=== PATIENT | male | born 1995 | race Caucasian/White ===

== ENCOUNTER 2017-10-29 19:22 | Emergency (ER) | payer OTHER ==
[2017-10-29] MEDS: IPRATROPIUM 0.5MG/ALBUTEROL 2.5MG INH SOL UD 3ML (DUONEB)(J7620) NEB (21:52)
[2017-10-29] MEDS: ALBUTEROL 90 MCG/ACT 8GM HFA INHALER INH (22:22)
== END 2017-10-29 22:33 | disposition home or self-care (01) ==
LOC: M ED 19:22
DX: J45.909 Unspecified asthma, uncomplicated (principal)
CPT/HCPCS: 94640

== ENCOUNTER 2017-11-06 20:06 | Emergency (ER) | payer OTHER ==
[2017-11-06] MEDS: predniSONE 20 MG TAB PO (22:48)
[2017-11-06] MEDS: IPRATROPIUM 0.5MG/ALBUTEROL 2.5MG INH SOL UD 3ML (DUONEB)(J7620) NEB (23:38)
[2017-11-06] MEDS: ALBUTEROL SULFATE 2.5 MG/0.5 ML INH NEB SOLN INH (23:38)
== END 2017-11-07 00:31 | disposition home or self-care (01) ==
LOC: M ED 20:06
DX: J45.901 Unspecified asthma with (acute) exacerbation (principal)
CPT/HCPCS: 94640

== ENCOUNTER 2018-11-15 11:02 | Emergency (ER) | payer OTHER ==
[~2018-11-15] VITALS: Ht 180.3 cm; Wt 90.9 kg
[~2018-11-15 11:02] MED LIST: ALBU17IN2 INH; PRED20TA PO
[2018-11-15] MEDS: IPRATROPIUM 0.5MG/ALBUTEROL 2.5MG INH SOL UD 3ML (DUONEB)(J7620) NEB SCH ×3 (11:27→11:51)
[2018-11-15 12:06] VITALS: BP 121/76
[2018-11-15] MEDS ORDERED: PROAAER10 INH (12:28)
== END 2018-11-15 12:33 | disposition home or self-care (01) ==
LOC: M ED 11:02
DX: J45.901 Unspecified asthma with (acute) exacerbation (principal); F17.210 Nicotine dependence, cigarettes, uncomplicated

== ENCOUNTER 2019-01-12 10:29 | Emergency (ER) | payer OTHER ==
[~2019-01-12] VITALS: Ht 177.8 cm; Wt 93.6 kg
[~2019-01-12 10:29] MED LIST changes: +PROAAER10 INH
[2019-01-12] MEDS ORDERED: HYDR-3363 (10:46)
[2019-01-12] MEDS ORDERED: MELO15TA28 (10:46)
[2019-01-12] MEDS ORDERED: IPRATROPIUM 0.5MG/ALBUTEROL 2.5MG INH SOL UD 3ML (DUONEB)(J7620) NEB ONE (12:00)
--- NOTE | 2019-01-12 12:14 | REP ---
Chest x-ray: Two views. History: Productive cough and wheezing. . Comparison study: No comparison study . Findings: The lungs are well inflated and free of infiltrate. The pleural angles are sharp. The heart size is normal. Pulmonary vasculature is not increased. No significant bony abnormality is seen. Impression: Negative chest x-ray. Electronically Signed by Cricket Vaughan MD 01/12/2019 12:05 P
[2019-01-12 12:41] LABS: INFLUENZA A AMPLIFICATION POSITIVE (NEGATIVE); INFLUENZA B AMPLIFICATION NEGATIVE (NEGATIVE)
[2019-01-12 13:21] VITALS: BP 120/62
== END 2019-01-12 12:55 | disposition home or self-care (01) ==
LOC: M ED 10:29
DX: J09.X9 Influenza due to identified novel influenza A virus with other manifestations (principal); J45.909 Unspecified asthma, uncomplicated; F17.200 Nicotine dependence, unspecified, uncomplicated; Z79.899 Other long term (current) drug therapy

== ENCOUNTER 2019-03-31 19:54 | Emergency (ER) | payer OTHER ==
[~2019-03-31] VITALS: Ht 177.8 cm; Wt 90.9 kg
[~2019-03-31 19:54] MED LIST changes: +HYDR-3363; +MELO15TA28
[2019-03-31] MEDS ORDERED: diphenhydrAMINE 50 MG CAP PO ONE (23:45)
[2019-03-31] MEDS ORDERED: methylPREDNISolone INJ 125 MG/2 ML VIAL (J2930) IM ONE (23:45)
[2019-03-31] MEDS ORDERED: PRED20TA PO (23:49)
[2019-03-31] MEDS ORDERED: PROAAER10 INH (23:49)
[2019-04-01 00:01] VITALS: BP 14/55
== END 2019-04-01 00:09 | disposition home or self-care (01) ==
LOC: M ED 19:54
DX: T78.40XA Allergy, unspecified, initial encounter (principal); L29.9 Pruritus, unspecified; L50.9 Urticaria, unspecified; H05.222 Edema of left orbit; Z77.098 Contact with and (suspected) exposure to other hazardous, chiefly nonmedicinal, chemicals; J45.909 Unspecified asthma, uncomplicated; Z72.0 Tobacco use
CPT/HCPCS: 96372; 99284; J2930

== ENCOUNTER 2019-05-22 07:49 | Emergency (ER) | payer OTHER ==
[~2019-05-22] VITALS: Ht 177.8 cm; Wt 89.4 kg
[~2019-05-22 07:49] MED LIST changes: -ALBU17IN2 INH; +PROV108A INH
[2019-05-22] MEDS ORDERED: HYDR-3363 PO (08:14)
[2019-05-22] MEDS ORDERED: ALBUTEROL SULFATE 2.5 MG/0.5 ML INH NEB SOLN NEB ONE (10:30)
[2019-05-22 10:54] LABS: BASO % 0.3 % (0.0-1.0); EOS # 0.3 10^3/uL (0.0-0.50); HEMATOCRIT 47.8 % (42.0-52.0); HEMOGLOBIN 16.3 g/dl (13.5-17.5); LYMPH # 1.6 10^3/uL (1.5-6.5); LYMPH % 25.3 % (24.0-44.0); MEAN CORPUSCULAR HGB CONC 34.1 g/dl (32.0-36.5); MONO # 0.7 10^3/uL (0.0-0.8); MONO % 10.9 % (0.0-5.0); NEUTROPHILS # 3.8 10^3/uL (1.8-7.7); NEUTROPHILS % 59.3 % (36.0-66.0); PLATELET COUNT, AUTOMATED 263 10^3/uL (150-450); RED BLOOD COUNT 5.43 10^6/uL (4.30-6.10); WHITE BLOOD COUNT 6.3 10^3/uL (4.0-10.0)
[2019-05-22 11:15] LABS: BLOOD UREA NITROGEN 14 MG/DL (7-18); CALCIUM LEVEL 9.7 MG/DL (8.5-10.1); CARBON DIOXIDE LEVEL 31 MEQ/L (21-32); CHLORIDE LEVEL 108 MEQ/L (98-107); CREATININE FOR GFR 0.78 MG/DL (0.70-1.30); GLOMERULAR FILTRATION RATE > 60.0 (>60); GLUCOSE, FASTING 86 MG/DL (70-100); POTASSIUM SERUM 4.2 MEQ/L (3.5-5.1); SODIUM LEVEL 143 MEQ/L (136-145)
[2019-05-22 11:22] LABS: INFLUENZA A AMPLIFICATION NEGATIVE (NEGATIVE); INFLUENZA B AMPLIFICATION NEGATIVE (NEGATIVE)
[2019-05-22] MEDS ORDERED: TESS100C PO (12:22)
[2019-05-22] MEDS ORDERED: PROAAER10 INH (12:22)
[2019-05-22 13:12] LABS: CK-MB VALUE MASS < 1.0 NG/ML (<3.6); CPK CREATINE PHOSPHOKINASE 127 U/L (39-308); MB/CK RELATIVE INDEX 0.79 (< OR =4); TROPONIN I < 0.02 NG/ML (< 0.10)
--- NOTE | 2019-05-22 13:26 | REP ---
CHEST PA AND LATERAL: 05/22/2019. Comparison: 01/12/2019. Clinical history: Wheezing, productive cough, fever and chills. Findings: The lungs are well inflated. There is no pleural effusion or lateral pleural thickening. There are a few cuffed bronchi in the perihilar regions that might reflect some bronchitis or reactive airway disease but no dense consolidation or effusion. The heart, mediastinal and hilar contours are normal. Airway intact. Bones unremarkable. Impression: 1. Some minor peribronchial thickening perihilar regions that might reflect reactive airway disease or bronchitis but no dense consolidation or effusion. Otherwise negative. Electronically Signed by Blake Clark MD 05/22/2019 03:06 P
[2019-05-22 13:27] VITALS: BP 122/83
--- NOTE | 2019-05-23 08:05 | ECGEPIP ---
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
== END 2019-05-22 13:36 | disposition home or self-care (01) ==
LOC: M ED 07:49
DX: J20.9 Acute bronchitis, unspecified (principal); J06.9 Acute upper respiratory infection, unspecified; J45.909 Unspecified asthma, uncomplicated; F17.210 Nicotine dependence, cigarettes, uncomplicated

== ENCOUNTER 2020-10-14 03:32 | Emergency (ER) | payer OTHER ==
[~2020-10-14] VITALS: Ht 180.3 cm; Wt 105.0 kg
[~2020-10-14 03:32] MED LIST changes: +HYDR-3363 PO; +TESS100C PO
[2020-10-14 04:00] VITALS: BP 116/73
[2020-10-14] MEDS ORDERED: methylPREDNISolone 125MG 2ML VIAL IV ONE (04:00)
[2020-10-14] MEDS ORDERED: COMBIVENT RESPIMAT 100-20MCG INHALER 4GM INH SCH (04:00)
== END 2020-10-14 07:29 | disposition home or self-care (01) ==
LOC: M ED 03:32
DX: J45.21 Mild intermittent asthma with (acute) exacerbation (principal); J30.81 Allergic rhinitis due to animal (cat) (dog) hair and dander; F17.210 Nicotine dependence, cigarettes, uncomplicated
CPT/HCPCS: 96374; 99284; J2930

== ENCOUNTER 2020-11-01 18:00 | Emergency (ER) | payer OTHER ==
[~2020-11-01] VITALS: Ht 180.3 cm; Wt 93.3 kg
--- OUTSIDE RECORDS SUMMARY | 2020-11-01 18:09 | CCD ---
Author Author [facility] Organization [facility] Address Unknown Phone Unavailable Support Name Relationship Address Phone MILIND BOWLING Next Of Kin [address] [place] [address] [facility] Next Of Kin [address] [place] [address] Unavailable Re-disclosure Warning The records that you are about to access may contain information from federally-assisted alcohol or drug abuse programs. If such information is present, then the following federally mandated warning applies: This information has been disclosed to you from records protected by federal confidentiality rules (42 CFR part 2). The federal rules prohibit you from making any further disclosure of this information unless further disclosure is expressly permitted by the written consent of the person to whom it pertains or as otherwise permitted by 42 CFR part 2. A general authorization for the release of medical or other information is NOT sufficient for this purpose. The Federal rules restrict any use of the information to criminally investigate or prosecute any alcohol or drug abuse patient.The records that you are about to access may contain highly sensitive health information, the redisclosure of which is protected by Article 27-F of the [facility] Public Health law. If you continue you may have access to information: Regarding HIV / AIDS; Provided by facilities licensed or operated by the [facility] Office of Mental Health; or Provided by the [facility] Office for People With Developmental Disabilities. If such information is present, then the following [facility] mandated warning applies: This information has been disclosed to you from confidential records which are protected by state law. State law prohibits you from making any further disclosure of this information without the specific written consent of the person to whom it pertains, or as otherwise permitted by law. Any unauthorized further disclosure in violation of state law may result in a fine or retirement sentence or both. A general authorization for the release of medical or other information is NOT sufficient authorization for further disc losure. Insurance Providers Payer name Policy type / Coverage type Policy ID Covered green party ID Covered green party's relationship to schwab Policy Schw[employer] Plan Information [employer] [id number] SP [id number] [employer] [id number] SP [id number] [employer] [id number] SP [id number] [employer] [id number] SP [id number] [employer] [id number] SP [id number]
--- OUTSIDE RECORDS SUMMARY | 2020-11-01 18:58 | CCD ---
Author Author [facility] Organization [facility] Address Unknown Phone Unavailable Support Name Relationship Address Phone MILIND BOWLING Next Of Kin [address] [place] [address] [facility] Next Of Kin [address] [place] [address] Unavailable Re-disclosure Warning The records that you [...] is protected by Article 27-F of the [facility] Public Health law. If you continue you may have access to information: Regarding HIV / AIDS; Provided by facilities licensed or operated by the [facility] Office of Mental Health; or Provided by the [facility] Office for People With Developmental Disabilities. If such information is present, then the following [facility] mandated warning applies: This information has been [...] law may result in a fine or assisted sentence or both. A general authorization for the release of medical or other information is NOT sufficient authorization for further disc losure. Insurance Providers Payer name Policy type / Coverage type Policy ID Covered alliance party ID Covered alliance party's relationship to schwab Policy Schw[employer] Plan Information [employer] [id number] SP [id number] [employer] [id number] SP [id number] [employer] [id number] SP [id number] [employer] [id number] SP [id number] [employer] [id number] SP [id number]
[2020-11-01] MEDS ORDERED: COMBIVENT RESPIMAT 100-20MCG INHALER 4GM INH ONE (19:00)
[2020-11-01] MEDS ORDERED: methylPREDNISolone 125MG 2ML VIAL IV ONE (19:00)
[2020-11-01 19:47] LABS: BASO # 0.1 10^3/uL (0.0-0.2); BASO % 0.4 % (0.0-1.0); EOS # 0.3 10^3/uL (0.0-0.5); EOS % 1.8 % (0.0-3.0); HEMATOCRIT 46.1 % (42.0-52.0); HEMOGLOBIN 15.5 g/dl (13.5-17.5); LYMPH # 2.1 10^3/uL (1.5-5.0); MEAN CORPUSCULAR HEMOGLOBIN 29.4 pg (27.0-33.0); MEAN CORPUSCULAR HGB CONC 33.6 g/dl (32.0-36.5); MEAN CORPUSCULAR VOLUME 87.3 fl (80.0-96.0); MONO # 1.1 10^3/uL (0.0-0.8); MONO % 7.2 % (0.0-5.0); NEUTROPHILS # 12.1 10^3/uL (1.5-8.5); NEUTROPHILS % 77.2 % (36.0-66.0); PLATELET COUNT, AUTOMATED 280 10^3/uL (150-450); RED BLOOD COUNT 5.28 10^6/uL (4.30-6.10); WHITE BLOOD COUNT 15.7 10^3/uL (4.0-10.0)
--- NOTE | 2020-11-01 19:50 | REP ---
INDICATION: DYSPNEA/COUGH. COMPARISON: Comparison chest x-ray May 22, 2019. TECHNIQUE: Portable upright AP chest radiograph. FINDINGS: The lungs are well inflated and free of infiltrate. Pleural angles are sharp. Heart size is normal. Pulmonary vasculature is not increased. Monitoring electrodes are visible. IMPRESSION: No active disease. <Electronically signed by Keyur Vaughan > 11/01/20 [id number]
[2020-11-01 20:09] LABS: ALBUMIN 4.3 GM/DL (3.2-5.2); ALT/SGPT 61 U/L (12-78); BILIRUBIN,DIRECT 0.2 MG/DL (0.0-0.2); BILIRUBIN,TOTAL 0.9 MG/DL (0.2-1.0); BLOOD UREA NITROGEN 9 MG/DL (7-18); CALCIUM LEVEL 9.5 MG/DL (8.5-10.1); CARBON DIOXIDE LEVEL 28 MEQ/L (21-32); CHLORIDE LEVEL 107 MEQ/L (98-107); CREATININE FOR GFR 0.78 MG/DL (0.70-1.30); GLOMERULAR FILTRATION RATE > 60.0 (>60); GLUCOSE, FASTING 80 MG/DL (70-100); POTASSIUM SERUM 3.6 MEQ/L (3.5-5.1); SODIUM LEVEL 139 MEQ/L (136-145); TOTAL PROTEIN 7.5 GM/DL (6.4-8.2)
[2020-11-01 21:14] LABS: RSV AMPLIFICATION NEGATIVE (NEGATIVE)
[2020-11-01] MEDS ORDERED: IPRATROPIUM 0.5MG/ALBUTEROL 2.5MG INH SOL UD 3ML (DUONEB) NEB ONE (21:45)
[2020-11-01 22:49] VITALS: O2SAT 95
[2020-11-01] MEDS ORDERED: VENTAER INH (23:10)
[2020-11-01] MEDS ORDERED: PRED20TA PO (23:12)
[2020-11-01 23:22] VITALS: BP 125/82
--- NOTE | 2020-11-02 20:26 | ECGEPIP ---
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
== END 2020-11-01 23:25 | disposition home or self-care (01) ==
LOC: M ED 18:00
DX: J45.901 Unspecified asthma with (acute) exacerbation (principal); F17.200 Nicotine dependence, unspecified, uncomplicated; Z79.51 Long term (current) use of inhaled steroids
CPT/HCPCS: 71045; 80048; 80076; 85025; 87631; 93005; 93041; 94640; 94760; 96374; 99285; J2930

== ENCOUNTER 2020-12-31 21:28 | Emergency (ER) | payer OTHER ==
[~2020-12-31] VITALS: Ht 172.7 cm; Wt 90.0 kg
[~2020-12-31 21:28] MED LIST changes: +VENTAER INH
[2020-12-31 21:31] VITALS: BP 125/64
[2020-12-31] MEDS ORDERED: predniSONE 20 MG TAB PO ONE (21:45)
[2020-12-31] MEDS ORDERED: ALBUTEROL SULFATE 2.5 MG/0.5 ML INH NEB SOLN NEB ONE (21:45)
[2020-12-31] MEDS ORDERED: PRED20TA PO (22:38)
== END 2020-12-31 22:45 | disposition home or self-care (01) ==
LOC: M ED 21:28
DX: J45.21 Mild intermittent asthma with (acute) exacerbation (principal); F17.200 Nicotine dependence, unspecified, uncomplicated